=== PATIENT | female | born 1985 | race Caucasian/White ===

== ENCOUNTER 2018-01-02 06:02 | Day surgery (SDC) | payer OTHER ==
[~2018-01-02] VITALS: Ht 167.6 cm; Wt 68.5 kg
[~2018-01-02 06:02] MED LIST: ESCI10; HYDACE5 PO; ISOT10; LAMO100; LAMO100 PO
[2018-03-14] MEDS ORDERED: LAMOTRIGINE (BL25 MG (11:30)
== END 2018-01-02 23:02 | disposition home or self-care (01) ==
LOC: ORSCMMR 06:02
PROVIDERS: Obstetrics & Gynecology
PROC: 0U5F4ZZ Destruction of Cul-de-sac, Percutaneous Endoscopic Approach (ICD-10-PCS; principal; 2018-01-02 07:30)
DX: R10.2 Pelvic and perineal pain (principal); N80.3 Endometriosis of pelvic peritoneum; N94.10 Unspecified dyspareunia
CPT/HCPCS: J0171; J2250; J2405; J3010; J7120

== ENCOUNTER 2018-03-14 | Day surgery (SDC) | END 2018-03-14 12:29 | disposition home or self-care (01) ==

== ENCOUNTER → 2018-05-31 | Outpatient (CLI) | payer OTHER ==
[~2018-05-31] MED LIST changes: +LAMOTRIGINE (BL25 MG
== END ==
LOC: LAB EV 11:45
DX: R11.2 Nausea with vomiting, unspecified (principal)
CPT/HCPCS: 87493

== ENCOUNTER → 2019-10-24 | Outpatient (CLI) | payer OTHER | END | disposition home or self-care (01) | LOC: LAB SHORT 08:16 → PLD 08:16 | DX: L72.3 Sebaceous cyst (principal) | CPT/HCPCS: 88304 ==

== ENCOUNTER → 2019-11-26 | Outpatient (CLI) | payer OTHER ==
[2019-11-26 13:41] LABS: BASOPHILS ABSOLUTE AUTO 0.01 K/mm3 (0.00-0.23); BASOPHILS PERCENT AUTO 0 % (0-2); EOSINOPHILS ABSOLUTE AUTO 0.09 K/mm3 (0.00-0.68); EOSINOPHILS PERCENT AUTO 2 % (0-6); Hematocrit 36.8 % (33.0-51.0); Hemoglobin 12.6 g/dL (11.5-16.0); IMMATURE GRAN ABSOLUTE AUTO 0.01 K/mm3 (0.00-0.10); IMMATURE GRAN PERCENT AUTO 0 % (0-1); LYMPHOCYTES ABSOLUTE AUTO 1.65 K/mm3 (0.84-5.20); LYMPHOCYTES PERCENT AUTO 34 % (21-46); MONOCYTES ABSOLUTE AUTO 0.31 K/mm3 (0.16-1.47); MONOCYTES PERCENT AUTO 6 % (4-13); Mean Corpuscular HGB 30.6 pg (26.0-34.0); Mean Corpuscular HGB Conc 34.2 g/dL (31.5-36.5); Mean Corpuscular Volume 89 fL (80-100); Mean Platelet Volume 10.2 fL (9.1-12.4); NEUTROPHILS ABSOLUTE AUTO 2.83 K/mm3 (1.96-9.15); NEUTROPHILS PERCENT AUTO 58 % (41-73); Platelet Count 239 K/mm3 (150-400); RDW Standard Deviation 39.1 fL (35.1-46.3); Red Blood Cell Count 4.12 M/mm3 (3.80-5.20)
[2019-11-26 13:51] LABS: Alanine Aminotransfer (ALT/SGP 17 U/L (12-78); Albumin, Blood 3.8 g/dL (3.4-5.0); Albumin/Globulin Ratio 1.1 (0.8-1.8); Alk Phos 49 U/L (40-126); Anion Gap 6 mmol/L (6-16); Aspartate Aminotrans (AST/SGOT 16 U/L (12-37); Bilirubin, Total 0.8 mg/dL (0.1-1.0); Blood Urea Nitrogen 10 mg/dL (8-24); Bun/Creatinine Ratio 14.3 (12.0-20.0); CO2, Blood 28 mmol/L (21-32); Calcium, Blood 8.7 mg/dL (8.5-10.1); Chloride, Blood 106 mmol/L (98-108); Globulin, Blood 3.5 g/dL (2.2-4.0); Glomerular Filtration Rate >60 (60-); Glucose, Blood 87 mg/dL (70-99); Potassium, Blood 3.8 mmol/L (3.5-5.5); Sodium, Blood 140 mmol/L (136-145); Total Protein, Blood 7.3 g/dL (6.4-8.2)
== END | disposition home or self-care (01) ==
LOC: LAB EV 13:36 → LAB SHORT 13:36
PROVIDERS: Physician Assistant
DX: R42 Dizziness and giddiness (principal); M25.569 Pain in unspecified knee
CPT/HCPCS: 80053; 83690; 85025; 85651

== ENCOUNTER 2020-12-10 03:56 | Emergency (ER) | payer OTHER | END 2020-12-10 05:39 | disposition left against medical advice (07) | LOC: ER 03:56 | DX: Z53.21 Procedure and treatment not carried out due to patient leaving prior to being seen by health care provider (principal) ==

== ENCOUNTER 2022-07-01 10:33 | Day surgery (SDC) | payer OTHER ==
[~2022-07-01] VITALS: Ht 167.6 cm; Wt 75.8 kg
[2022-07-01] MEDS ORDERED: MULVITA (11:22)
[2022-07-01] MEDS ORDERED: IBUP200 (11:23)
--- NOTE | 2022-07-01 11:28 | NUR ---
07/01/22 1128 Sarai Suarez "IV HURTS, JUST BECAUSE ITS IN MY ARM."
--- NOTE | 2022-07-01 12:37 | NUR ---
07/01/22 1237 Jorge A Lepe ROPIVACAINE 0.2% 20 MLS MIXED, VERIFIED, & DIVIDED PER ORDER BY RN W/ EPI (1MG/ML) 0.1 ML TO MAKE ROPIVACAINE 0.2% 1:200,000 FOR INJECTION AT OPSITE BY DR LARRY. 10 MLS INJECTED.
--- NOTE | 2022-07-01 13:21 | NUR ---
07/01/22 1321 SHAHAB ESPINOZA PT C/O PAIN 04/25. NAUSEA AND SHAKING. FENTANYL 25MCG GIVEN IV PUSH. MULTIPLE WARM BLANKETS GIVEN.
--- NOTE | 2022-07-01 13:39 | NUR ---
07/01/22 1339 SHAHAB ESPINOZA NAUSEA IS BETTER. PAIN STILL 04/25- LLA FENTANYL 25MCG GIVEN NOW=75MCG TOTAL
== END 2022-07-01 15:19 | disposition home or self-care (01) ==
LOC: ORSCSDS 10:33
PROVIDERS: Obstetrics & Gynecology
PROC: 0DNW4ZZ Release Peritoneum, Percutaneous Endoscopic Approach (ICD-10-PCS; principal; 2022-07-01 12:00)
PROC: 0UT04ZZ Resection of Right Ovary, Percutaneous Endoscopic Approach (ICD-10-PCS; principal; 2022-07-01 12:00)
DX: R10.2 Pelvic and perineal pain (principal); N80.3 Endometriosis of pelvic peritoneum; N73.6 Female pelvic peritoneal adhesions (postinfective); Z90.711 Acquired absence of uterus with remaining cervical stump; N94.89 Other specified conditions associated with female genital organs and menstrual cycle; F31.9 Bipolar disorder, unspecified; Z79.899 Other long term (current) drug therapy
CPT/HCPCS: 88305; A9270; J0171; J1100; J2250; J2405; J2704; J2765; J2795; J3010; J7120

== ENCOUNTER 2023-02-16 09:44 | Emergency (ER) | payer OTHER ==
[~2023-02-16] VITALS: Ht 167.6 cm; Wt 77.1 kg
[~2023-02-16 09:44] MED LIST changes: +IBUP200; +MULVITA
[2023-02-16 10:55] LABS: BASOPHILS ABSOLUTE AUTO 0.02 K/mm3 (0.00-0.23); BASOPHILS PERCENT AUTO 0 % (0-2); EOSINOPHILS ABSOLUTE AUTO 0.06 K/mm3 (0.00-0.68); EOSINOPHILS PERCENT AUTO 1 % (0-6); Hematocrit 38.5 % (33.0-51.0); IMMATURE GRAN ABSOLUTE AUTO 0.04 K/mm3 (0.00-0.10); IMMATURE GRAN PERCENT AUTO 1 % (0-1); LYMPHOCYTES ABSOLUTE AUTO 2.39 K/mm3 (0.84-5.20); LYMPHOCYTES PERCENT AUTO 31 % (21-46); MONOCYTES ABSOLUTE AUTO 0.51 K/mm3 (0.16-1.47); MONOCYTES PERCENT AUTO 7 % (4-13); Mean Corpuscular HGB 29.9 pg (26.0-34.0); Mean Corpuscular HGB Conc 33.8 g/dL (31.5-36.5); Mean Corpuscular Volume 89 fL (80-100); Mean Platelet Volume 10.1 fL (9.1-12.4); NEUTROPHILS ABSOLUTE AUTO 4.77 K/mm3 (1.96-9.15); NEUTROPHILS PERCENT AUTO 61 % (41-73); Platelet Count 277 K/mm3 (150-400); RDW Coefficient Variation 11.7 % (11.7-14.2); RDW Standard Deviation 37.6 fL (35.1-46.3); Red Blood Cell Count 4.35 M/mm3 (3.80-5.20); White Blood Cell Count 7.79 K/mm3 (4.00-11.30)
[2023-02-16 11:07] LABS: C-REACTIVE PROTEIN, EXT RANGE <0.290 mg/dL (0.000-0.300)
[2023-02-16 11:17] LABS: Anion Gap Unable to Calculate mmol/L (6-16); Blood Urea Nitrogen 11 mg/dL (8-24); Bun/Creatinine Ratio 14.4 (12.0-20.0); CO2, Blood 27 mmol/L (21-32); Calcium, Blood 8.9 mg/dL (8.5-10.1); Chloride, Blood 114 mmol/L (98-108); Creatinine, Blood 0.76 mg/dL (0.40-1.00); Glomerular Filtration Rate 103 (60-); Glucose, Blood 98 mg/dL (70-99); Potassium, Blood 3.8 mmol/L (3.5-5.5); Sodium, Blood 140 mmol/L (136-145)
[2023-02-16] MEDS ORDERED: Deltasone 10 mg10 MG PO (12:33)
[2023-02-16 12:42] VITALS: BP 113/75
== END 2023-02-16 12:45 | disposition home or self-care (01) ==
LOC: ER 09:44
PROVIDERS: Student in an Organized Health Care Education/Training Program
DX: R42 Dizziness and giddiness (principal); R51.9 Headache, unspecified; Z88.0 Allergy status to penicillin; Z88.8 Allergy status to other drugs, medicaments and biological substances; Z88.5 Allergy status to narcotic agent; Z91.013 Allergy to seafood
CPT/HCPCS: 70544; 80048; 85025; 85651; 86140; A9270; J7030